=== PATIENT | female | born 1965 | race Caucasian/White ===

== ENCOUNTER → 2020-09-26 | Outpatient (CLI) | payer OTHER | LOC: CT 09-24 16:00 | DX: R10.30 Lower abdominal pain, unspecified (principal); K57.92 Diverticulitis of intestine, part unspecified, without perforation or abscess without bleeding; E27.9 Disorder of adrenal gland, unspecified | CPT/HCPCS: Q9967 ==

== ENCOUNTER → 2021-08-21 | Outpatient (CLI) | payer OTHER | LOC: CT 07:11 | DX: E27.9 Disorder of adrenal gland, unspecified (principal) | CPT/HCPCS: 36415; 74170; 82565; Q9967 ==

== ENCOUNTER → 2021-10-31 | Outpatient (CLI) | payer OTHER | LOC: KOH-I 13:08 | DX: M18.9 Osteoarthritis of first carpometacarpal joint, unspecified (principal); M79.671 Pain in right foot | CPT/HCPCS: 73130; 73630 ==